=== PATIENT | male | born 1960 | race Caucasian/White ===

== ENCOUNTER 2020-04-29 06:44 | Day surgery (SDC) | payer BC ==
[2020-04-29] MEDS ORDERED: Lidocaine 1% PF 2 ML SDV INJECT ONE (06:45)
[2020-04-29] MEDS ORDERED: Propofol 200 MG/20 ML SDV IV ONE (06:45)
[2020-04-29] MEDS ORDERED: Sodium Chloride 0.9% 10 ML Syringe FLUSH PRN (06:45)
[2020-04-29] MEDS ORDERED: Lactated Ringers 1,000 ML IV SCH (06:45)
--- NOTE | 2020-04-29 08:13 | PCM.OPNOTE ---
- General Post-Op/Procedure Note Date of Surgery/Procedure: 04/29/20 Operative Procedure(s): c scope Findings: anal skin tag Pre Op Diagnosis: personal hx of rectal polyp Post-Op Diagnosis: anal skin tag Anesthesia Technique: MAC Primary Surgeon: Ashish Morataya Anesthesia Provider: Natanael Posey Pathology: none Complications: None Condition: Good Free Text/Narrative:: see dictation [id number]
[2020-04-29 08:39] VITALS: BP 119/70; PULSE 76
--- NOTE | 2020-04-29 08:59 | OR ---
DATE OF OPERATION: 04/29/2020 SURGEON: Ashish Morataya MD PROCEDURE PERFORMED: Colonoscopy. PREOPERATIVE DIAGNOSIS: History of rectal polyp. POSTOPERATIVE DIAGNOSIS: Anal skin tag. INDICATIONS FOR PROCEDURE: This is a 59-year-old white male who is 5 years out from his last colonoscopy where he had a rectal polyp removed that was adenomatous. He was also noted at that time to have an anal tag. He presents now for followup C-scope. DESCRIPTION OF OPERATION: After an excellent IV sedation was administered, digital rectal exam was performed. No marked abnormality was noted. Flexible colonoscope was inserted and advanced to the cecum. The prep was excellent. The following findings were noted. After identifying the cecum by its usual anatomic markers of the shawnee's foot as well as the appendiceal lumen, the scope was slowly withdrawn. The ascending colon was unremarkable. Transverse colon was unremarkable. Descending colon was unremarkable. Sigmoid unremarkable. Rectum unremarkable. 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 The patient tolerated the procedure well. RECOMMENDATIONS: Repeat colonoscopy in 10 years. /[id number] /MODL
== END 2020-04-29 08:45 | disposition home or self-care (01) ==
LOC: FB.SDS 06:44
PROVIDERS: ATTEND Surgery
DX: K62.89 Other specified diseases of anus and rectum (principal); I10 Essential (primary) hypertension; E66.9 Obesity, unspecified; Z68.31 Body mass index [BMI] 31.0-31.9, adult; Z88.2 Allergy status to sulfonamides; Z87.19 Personal history of other diseases of the digestive system; Z98.890 Other specified postprocedural states
CPT/HCPCS: 00811-QZ; J2704; J7120